=== PATIENT | male | born 2000 | race Caucasian/White ===

== ENCOUNTER 2020-05-29 02:24 | Emergency (ER) | payer BC ==
[2020-05-29] MEDS ORDERED: Boostrix 0.5 ML (Tdap) VIAL ONE (03:22)
== END 2020-05-29 05:50 | disposition home or self-care (01) ==
LOC: ERS 02:24
DX: S02.2XXA Fracture of nasal bones, initial encounter for closed fracture (principal); F10.129 Alcohol abuse with intoxication, unspecified; Z23 Encounter for immunization; Y04.8XXA Assault by other bodily force, initial encounter
CPT/HCPCS: 12011; 70450; 70486; 72125; 90471; 90715

== ENCOUNTER 2020-05-29 12:03 | Emergency (ER) | payer BC | END 2020-05-29 13:18 | disposition home or self-care (01) | LOC: ERS 12:03 | DX: S12.500A Unspecified displaced fracture of sixth cervical vertebra, initial encounter for closed fracture (principal); Y04.0XXA Assault by unarmed brawl or fight, initial encounter | CPT/HCPCS: 99283 ==

== ENCOUNTER 2020-06-22 13:28 | Outpatient (CLI) | payer BC | END 2020-06-22 13:29 | disposition home or self-care (01) | LOC: TBSIIMAG 13:28 | PROVIDERS: ATTEND Surgery | DX: S12.9XXA Fracture of neck, unspecified, initial encounter (principal) | CPT/HCPCS: 72040 ==

== ENCOUNTER 2021-04-28 17:26 | Emergency (ER) | payer BC ==
[2021-04-28] MEDS ORDERED: Ibuprofen 800 MG TAB ONE (18:54)
[2021-04-28] MEDS ORDERED: Cyclobenzaprine 10 MG TAB ONE (18:54)
== END 2021-04-28 19:23 | disposition home or self-care (01) ==
LOC: ERS 17:26
DX: S39.012A Strain of muscle, fascia and tendon of lower back, initial encounter (principal); M62.830 Muscle spasm of back; X50.9XXA Other and unspecified overexertion or strenuous movements or postures, initial encounter
CPT/HCPCS: 99283